=== PATIENT | male | born 1955 | race Caucasian/White ===

== ENCOUNTER 2023-05-23 12:32 | Emergency (ER) | payer OTHER ==
[2023-05-23 13:34] LABS: Actual Bicarbonate (HCO3v) 21.5 mEq/L (22-28); Base Excess -2.7 mEq/L (-2 - +2); Calcium, Ionized (venous) 1.15 mmol/L (1.16-1.32); Chloride (VBG) 104 mmol/L (98-106); Critical Notified Whom: cocjef; Hematocrit-VBG 44 % (42.0-52.0); Hemoglobin (Hb) 14.9 g/dL (12.6-17.4); Potassium (VBG) 4.35 mmol/L (3.70-5.30); Puncture Site Other Site; RapidComm Collect By lab; Sodium 138 mmol/L (133-146); pH (venous) 7.397 (7.32-7.43)
[2023-05-23 13:43] LABS: ALT (SGPT) 47 U/L (8-55); AST (SGOT) 26 U/L (5-34); Albumin 4.4 g/dL (3.4-4.8); Alkaline Phosphatase 97 U/L (40-110); Anion Gap 14 mmol/L (10-20); BUN (Urea Nitrogen) 13 mg/dL (8.4-25.7); Bilirubin, Total 0.6 mg/dL (0.2-1.2); Calc. Creatinine Clearance 0 mL/min (70-130); Calcium 9.1 mg/dL (7.8-10.44); Carbon Dioxide 21 mmol/L (23-31); Chloride 105 mmol/L (98-107); Estimated GFR 86; Globulin 2.7 g/dL (2.4-3.5); Glucose 215 mg/dL (80-115); Potassium 4.5 mmol/L (3.5-5.1); Protein, Total 7.1 g/dL (5.8-8.1); Sodium 135 mmol/L (136-145)
[2023-05-23 13:46] LABS: Troponin I Less than 0.010 ng/mL (< 0.028)
[2023-05-23 13:49] LABS: #Basophils 0.1 10x3/uL (0.0-0.2); #Eosinphils 0.6 10x3/uL (0.0-0.5); #Monocytes 0.4 10x3/uL (0.0-1.1); #Neutrophils 4.2 10x3/uL (1.5-8.4); %Basophils 0.7 % (0.0-2.0); %Eosinophils 7.8 % (0.0-6.0); %Lymphocytes 28.5 % (18.0-47.0); %Monocytes 5.8 % (0.0-10.0); %Neutrophils 56.9 % (40.0-75.0); Hematocrit 41.2 % (38.8-50.0); Hemoglobin 13.8 g/dL (13.5-17.5); Mean Corpuscular HGB CONC 33.5 g/dL (32.0-36.0); Mean Corpuscular Hemoglobin 28.6 pg (27.0-33.0); Mean Corpuscular Volume 85.3 fl (81.2-95.1); Mean Platelet Volume 9.8 fl (7.4-10.4); Platelet Count 279 10x3/uL (150-450); Red Blood Cell (RBC) Count 4.83 10x6/uL (4.32-5.72); White Blood Cell (WBC) Count 7.4 10x3/uL (3.5-10.5)
[2023-05-23] MEDS ORDERED: Albuterol 2.5 MG/0.5 ML NEB ONE (13:53)
== END 2023-05-23 16:40 ==
LOC: CSHERS 12:32 → EEVIPCON 12:32 → CSHERS 16:40
DX: J44.1 Chronic obstructive pulmonary disease with (acute) exacerbation (principal); I10 Essential (primary) hypertension; E11.9 Type 2 diabetes mellitus without complications
CPT/HCPCS: 71045; 80053; 82805; 83880; 84484; 85025; 93005; 94640; J7611